=== PATIENT | male | born 1975 | race Caucasian/White ===

== ENCOUNTER 2024-09-15 08:29 | Day surgery (SDC) | payer OTHER ==
[2024-08-16 16:30] VITALS: BP 122/74
[2024-08-19 07:57] VITALS: BP 121/83
--- NOTE | 2024-08-19 09:15 | NUR ---
PER ANESTHESIA, PT CX D/T USE OF CHEWING TOBACCO AT 0600 TODAY. IV REMOVED, TIP OBSERVED TO BE INTACT. PRESSURE DRSG APPLIED WITH GAUZE AND COBAN. PT DRSG TO DC. CALLED AND PT TO MEET IN LOBBY. PT LEFT DS AT APPROX 0915, AMBULATORY, WITH ALL PERSONAL BELONINGS.
[~2024-09-15] VITALS: Ht 180.3 cm; Wt 129.5 kg
[~2024-09-15 08:29] MED LIST: ADVAIR 100-501 EACH INH; IBLOOD GLUCOSE TEST STRIP 1 EA TEST VI PRN; LACTATED RINGER'S 1,000 ML IV SCH; LIDOCAINE HCL 1% 5 ML SDV INJ ONE; LISINOPRIL-HCT1 EAC2 PO; MEN'S 50 PLUS1 EACH PO; MIDAZOLAM HCL 5 MG/5 ML VIAL IV PRN; PROAIR DIGIHAL90 MCG IH; TESTONE CI200 MG/1 M IM; VITAMIN D310 MC1 PO; fentaNYL citrate 100 MCG/2 ML VIAL IV PRN
[2024-09-15 08:47] VITALS: BP 146/78
[2024-09-15 09:24] LABS: ALBUMIN 4.1 g/dL (3.4-5.0); ALBUMIN/GLOBULIN RATIO 1.41 (1.1-2.4); ANION GAP 11.9 (7-21); BILIRUBIN, TOTAL 0.8 ng/dL (0.2-1.0); BUN/CREATININE RATIO 13.51 (6.0-28.6); CALCIUM 9.2 mg/dL (8.5-10.1); CREATININE, SERUM 1.11 mg/dL (0.70-1.30); POTASSIUM 3.9 mmol/L (3.5-5.1)
[2024-09-15] MEDS ORDERED: LIDOCAINE HCL 2% 5 ML SDV ONE (09:35)
[2024-09-15] MEDS ORDERED: propofoL 200 MG/20 ML VIAL ONE (09:35)
[2024-09-15] MEDS ORDERED: fentaNYL citrate 100 MCG/2 ML VIAL ONE (09:36)
[2024-09-15] MEDS ORDERED: KETAMINE in NS 50 MG/5 ML SYR ONE (09:53)
[2024-09-15 10:33] VITALS: BP 136/77
--- NOTE | 2024-09-16 05:46 | OR ---
[facility] [address], [place] [address] Signed DATE OF OPERATION: 09/15/2024 SURGEON: Catalina Rai MD PREOPERATIVE DIAGNOSIS: Screening. POSTOPERATIVE DIAGNOSES: 1. Minimal sigmoid diverticulosis. 2. Minimal internal hemorrhoids. PROCEDURE: Colonoscopy without biopsy. ESTIMATED BLOOD LOSS: None. INDICATIONS: Mr. Peralta is a 49-year-old obese gentleman, asked to see me for his first initial screening colonoscopy. He has no lower GI complaints. There is no family history of colon cancer or polyps. I gave Fabian a pamphlet on colonoscopy in my office. He understands the nature of the test. There is risk including, but not limited to gas bloating, crampy abdominal pain, bleeding, perforation requiring surgery, and missed diagnosis. We also reviewed the written instructions for the bowel prep line by line. He also understands the need for monitored anesthesia care given his rather large size; his very heavy face, chest, neck, and abdomen. He also says he has trouble sleeping without his CPAP mask. In that regard, he did need monitored anesthesia care with propofol infusion that proved to be a salazar decision today. He did require preoperative blood work and an EKG. He understands an adult person has to take him home afterwards. He had expressed understanding and wished to proceed. PROCEDURE NOTE: Fabian was taken into our endoscopy suite and placed in the left lateral decubitus position. He was given monitored anesthesia care propofol infusion per our nurse logistics specialist. A digital rectal exam was performed. He had good sphincter tone. No external hemorrhoids. No masses. He is a large man I could not palpate his prostate gland. The adult colonoscope was introduced and advanced under direct visualization up next to the ileocecal valve. I could not quite see just around the edge of the ileocecal valve. He was leaning forward and we took two nurses and we still could get the scope that last little bit. Otherwise, his prep was quite excellent. The scope was Electronically Signed By: CATALINA RAI MD 09/16/24 0546 PATIENT NAME: FABIAN PINEDA OPERATIVE REPORT DATE OF : 75 REPORT #: [id number] PHYSICIAN: CTAALINA RAI MD PCP: MELO ALMANZA PA-C REPORT IS CONFIDENTIAL AND NOT TO BE RELEASED WITHOUT AUTHORIZATION [facility] [address], [place] [address] Signed then slowly withdrawn. We took several pictures throughout for photodocumentation. He had diverticula in the left and sigmoid colon. They were moderate in size, few in number and scattered about. Once in the rectum, the scope was retroflexed, he does have minimal internal hemorrhoid columns. After this, the gas was suctioned out, colonoscope removed. Fabian tolerated the procedure quite well. RECOMMENDATIONS: Fabian can return in 10 years for repeat screening colonoscopy. Catalina Rai MD ALB/RONNAL /[id number] cc: Rehan Roca MD Patient Chart Catalina Rai MD Copies: REHAN ROCA DMD, ANDREW L MD ~ Electronically Signed By: CATALINA RAI MD 09/16/24 0546 PATIENT NAME: FABIAN PINEDA OPERATIVE REPORT DATE OF : 75 REPORT #: [id number] PHYSICIAN: CATALINA RAI MD PCP: MELO ALMANZA PA-C REPORT IS CONFIDENTIAL AND NOT TO BE RELEASED WITHOUT AUTHORIZATION
== END 2024-09-15 10:40 | disposition home or self-care (01) ==
LOC: DS 08:29
PROVIDERS: Nurse Anesthetist, Certified Registered; ATTEND Colon & Rectal Surgery
PROC: 0DJD8ZZ Inspection of Lower Intestinal Tract, Via Natural or Artificial Opening Endoscopic (ICD-10-PCS; principal; 2024-09-15 09:15)
DX: Z12.11 Encounter for screening for malignant neoplasm of colon (principal); K57.30 Diverticulosis of large intestine without perforation or abscess without bleeding; K64.8 Other hemorrhoids; I10 Essential (primary) hypertension; E29.1 Testicular hypofunction; G47.33 Obstructive sleep apnea (adult) (pediatric); J45.909 Unspecified asthma, uncomplicated; F17.220 Nicotine dependence, chewing tobacco, uncomplicated; R73.09 Other abnormal glucose; E66.9 Obesity, unspecified; Z68.41 Body mass index [BMI] 40.0-44.9, adult; Z79.890 Hormone replacement therapy; Z79.899 Other long term (current) drug therapy; Z88.0 Allergy status to penicillin
CPT/HCPCS: 00811; 36415; 80053; J2003; J2704; J3010; J3490; J7121

== ENCOUNTER 2025-06-09 23:30 | Emergency (ER) | payer OTHER ==
[~2025-06-09] VITALS: Ht 180.3 cm; Wt 129.5 kg
[~2025-06-09 23:30] MED LIST changes: -IBLOOD GLUCOSE TEST STRIP 1 EA TEST VI PRN; -LACTATED RINGER'S 1,000 ML IV SCH; -LIDOCAINE HCL 1% 5 ML SDV INJ ONE; -MIDAZOLAM HCL 5 MG/5 ML VIAL IV PRN; -fentaNYL citrate 100 MCG/2 ML VIAL IV PRN
[2025-06-10 00:55] VITALS: BP 136/83
== END 2025-06-10 01:03 | disposition home or self-care (01) ==
LOC: ED 23:30
DX: I97.618 Postprocedural hemorrhage of a circulatory system organ or structure following other circulatory system procedure (principal); Z88.0 Allergy status to penicillin; Z79.51 Long term (current) use of inhaled steroids; Z79.899 Other long term (current) drug therapy
CPT/HCPCS: 99283